=== PATIENT | female | born 1970 | race Caucasian/White ===

== ENCOUNTER 2019-07-11 12:55 | Inpatient (IN) | payer SELFPAY ==
[2019-07-11] VITALS (12 sets, daily range): BP systolic 121–138; BP diastolic 63–75; PULSE 98–113; RESP 16–25; TEMP 36.8–37.3; O2SAT 91–98; BMI 40.2
--- NOTE | 2019-07-11 13:05 | ED_ITS ---
Entered by Kimberlee Garcia, acting as scribe for Robert Cade DO HPI - SOB/Dyspnea General: Chief Complaint: Shortness of Breath/Dyspnea Stated Complaint: COPD,Back pain Time Seen by Provider: 07/11/19 13:05 Source: patient and family Mode of arrival: ambulatory Limitations: no limitations History of Present Illness: HPI Narrative: 49 yo female presents with shortness of breath. pt states she has had a cough. pt states this started a few days after being exposed to grandchildren. pt states she has had a fever and cough. pt stated this is worsened with deep breaths and nothing makes it better. pt denies any other symptoms at this time. pt has a hx of COPD. MD elicited complaint: shortness of breath and cough Pertinent past history: COPD Onset (ago): day(s) (2-3 days ago) Timing: constant and progressively worsening Severity: moderate Exacerbating factors: exertion and coughing Relieving factors: nothing Known history of: COPD Associated symptoms: Reports cough and fever(s); Deny abdominal pain, chest pain, dizziness, extremity pain, nausea, palpitations, polydipsia, polyuria, syncope or vomiting Related Data: Home oxygen amount: none Review of Systems Const: Reports: fever Eyes: Denies: change in vision or blurry vision Card: Denies: chest pain, palpitations, irregular heart rhythm, edema, syncope or leg pain with exertion GI: Denies: abdominal pain, nausea, vomiting, vomiting blood, coffee grounds in vomit, difficulty swallowing, heartburn/indigestion, diarrhea, constipation, cramping, blood in stool or black tarry stool : Denies: flank pain, painful urination, urinary frequency, urinary urgency, urinary incontinence or blood in urine Musc: Denies: neck pain, back pain, extremity pain, extremity swelling, joint pain or joint swelling Skin/Breast: Denies: rash, itching or redness Neuro: Denies: headache, numbness in extremities, weakness in extremities, changes in sensation, lack of coordination, difficulty walking, frequent falls, dizziness, vertigo or confusion Psych: Denies: anxiety, depression, loss of interest, visual hallucinations, auditory hallucinations, suicidal ideation or homicidal ideation Endo: Denies: excessive urination, excessive thirst, tired all the time or cold intolerance Eddie/Lymph: Denies: easy bruising, easy bleeding, petechiae, enlarged lymph nodes or tender lymph nodes PFSH ED PFSH: Statuses (acute, chronic, etc) shown below reflect problem list status as previously entered and may not be historically accurate Medical History Endometriosis (Acute) Thrombosis (Acute) Involving right ovary Surgical History History of cholecystectomy (Acute) History of oophorectomy, unilateral (Acute) Family History Mother Cancer breast Father Cancer pancreatic Social History Smoking and tobacco status: current every day smoker Alcohol intake: never Substance/Drug Use: never Lives independently: Yes Household members: significant other Female Reproductive History: Date of last menstrual period: 01/22/19 Physical Exam Const: COMMON NORMALS: oriented x3 and alert GENERAL APPEARANCE: cooperative, comfortable, well kempt and well developed NUTRITIONAL APPEARANCE: obese ORIENTATION/CONSCIOUSNESS: Yes awake, Yes oriented to person and Yes oriented to place HENMT: MOUTH: oral and palatal mucosa normal, lip normal and tongue normal THROAT: posterior oropharynx normal and tonsils normal Eye: COMMON NORMALS: PERRL, EOMs intact bilaterally, conjunctivae normal and no scleral icterus CONJUNCTIVA: Yes conjunctivae normal PUPIL: Yes PERRL Neck/C-Spine: COMMON NORMALS: full ROM, no lymphadenopathy, supple, no meningeal signs and thyroid normal THYROID: thyroid normal and asymmetrical Lymph: LYMPHATIC: no lymphadenopathy noted Resp: EFFORT & INSPECTION: Yes tachypneic, Yes pursed lip breathing and Yes actively coughing AUSCULTATION: wheezes throughout Cardio: COMMON NORMALS: regular rate and regular rhythm RATE: regular rate RHYTHM: regular rhythm HEART SOUNDS: no murmurs GI: COMMON NORMALS: normal to inspection, nondistended, normoactive bowel soun ds, soft to palpation and no hepatosplenomegaly PALPATION: Yes soft and Yes no hepatosplenomegaly : COMMON NORMALS: Yes no CVA tenderness BLADDER/KIDNEY EXAM: Yes no CVA tenderness Back/Pelvis: COMMON NORMALS: no CVA tenderness LUMBAR SPINE/LOWER BACK: Yes normal to inspection Extremity: COMMON NORMALS: no clubbing, cyanosis or edema, no calf tenderness and no pedal edema Neuro: COMMON NORMALS: oriented x3 SENSORIUM/ORIENTATION: Yes alert, Yes oriented to person and Yes oriented to place MENINGEAL SIGNS: Yes no meningeal signs Psych: APPEARANCE: Yes well kempt Skin: COMMON NORMALS: no rashes or lesions noted and skin turgor normal GENERAL SKIN EXAM: no rashes or lesions noted and turgor normal Course ED course: Initially had hoped to discharge the patient we given her nebulizer treatment she had pretty good read results and breathing improved and sats improved however this was short-lived she worsened again she is monitored for time only not believed with the influenza A and her COPD which is poorly controlled that she would do well as an outpatient she should be monitored for progression and aggressive pulmonary toilet. Vital Signs: Vital signs: Vital Signs Temperature 97.9 F 07/12/19 08:00 Pulse Rate 100 07/12/19 09:09 Respiratory Rate 18 07/12/19 09:05 Blood Pressure 131/85 07/12/19 08:00 Pulse Oximetry 96 07/12/19 09:05 MDM - SOB/Dyspnea Lab Data: Labs: Lab Results 07/11/19 07/11/19 07/11/19 Range/Units 13:26 13:41 13:45 WBC 7.0 (4.0-10.0) 10^3/ uL RBC 4.25 (4.1-5.3) 10^6/u L Hgb 12.0 (11.5-15.3) g/dL Hct 37.3 (37.0-47.0) % MCV 87.8 (81-99) fL MCH 28.2 (28.0-34.0) pg MCHC 32.2 (30.0-36.0) g/dL RDW 12.4 (12.1-15.1) % Plt Count 223 (130-400) 10^3/c mm MPV 9.4 (7.4-10.4) fL Neut % (Auto) 77.4 % Lymph % (Auto) 14.1 % [place] % (Auto) 7.8 % Eos % (Auto) 0.0 % Baso % (Auto) 0.3 % Neut # (Auto) 5.4 (1.8-7.7) 10^3/u L Lymph # (Auto) 1.0 (0.8-4.8) 10^3/u L [place] # (Auto) 0.5 (0.2-0.9) 10^3/u L Eos # (Auto) 0.0 (0.0-0.8) 10^3/u L Baso # (Auto) 0.0 (0.0-0.1) 10^3/u L Nucleated RBC % (a uto) 0 % Nucleated RBCs # 0.0 /100WBC Specimen Type Arterial Sample Site Radial, right ABG pH 7.52 H (7.35-7.45) ABG pCO2 34.1 L (35-45) mmHg ABG pO2 76.1 L (80.0-100.0) mmH g ABG HCO3 28.1 H (22-26) mmol/L ABG Base Excess 5.3 H (-2.0-2.0) mmol/ L [place] Test Pos Hematocrit 39.9 (37-47) % Hgb O2 Saturation 96.4 (95-100) % Carboxyhemoglobin 0.5 (0.4-20.1) %THgb Methemoglobin 0.4 (0.4-1.5) % Total Hemoglobin 13.0 (12-16) g/dL O2 Delivery Device Room air Director Family ID [id number] Sodium (136-145) mmol/L Potassium (3.5-5.1) mmol/L Chloride (98-107) mmol/L Carbon Dioxide (22-29) mmol/L Anion Gap (5-19) BUN (6-20) mg/dL Creatinine (0.5-0.9) mg/dL GFR Calculation (90-130) mL/min Glucose (65-115) mg/dL Calcium (8.5-10.5) mg/dL Total Bilirubin (0.15-1.2) mg/dL AST (0-32) U/L ALT (0-33) U/L Alkaline Phosphata se (35-105) IU/L Total Protein (6.6-8.7) g/dL Albumin (3.5-5.2) g/dL Globulin (1.3-4.6) g/dL Influenza Type A A g Positive H (Negative) POC Influenza B Ag Negative (Negative) 07/11/19 Range/Units 13:45 WBC (4.0-10.0) 10^3/ uL RBC (4.1-5.3) 10^6/u L Hgb (11.5-15.3) g/dL Hct (37.0-47.0) % MCV (81-99) fL MCH (28.0-34.0) pg MCHC (30.0-36.0) g/dL RDW (12.1-15.1) % Plt Count (130-400) 10^3/c mm MPV (7.4-10.4) fL Neut % (Auto) % Lymph % (Auto) % [place] % (Auto) % Eos % (Auto) % Baso % (Auto) % Neut # (Auto) (1.8-7.7) 10^3/u L Lymph # (Auto) (0.8-4.8) 10^3/u L [place] # (Auto) (0.2-0.9) 10^3/u L Eos # (Auto) (0.0-0.8) 10^3/u L Baso # (Auto) (0.0-0.1) 10^3/u L Nucleated RBC % (a uto) % Nucleated RBCs # /100WBC Specimen Type Sample Site ABG pH (7.35-7.45) ABG pCO2 (35-45) mmHg ABG pO2 (80.0-100.0) mmH g ABG HCO3 (22-26) mmol/L ABG Base Excess (-2.0-2.0) mmol/ L [place] Test Hematocrit (37-47) % Hgb O2 Saturation (95-100) % Carboxyhemoglobin (0.4-20.1) %THgb Methemoglobin (0.4-1.5) % Total Hemoglobin (12-16) g/dL O2 Delivery Device Director Family ID Sodium 134 L (136-145) mmol/L Potassium 3.4 L (3.5-5.1) mmol/L Chloride 97 L (98-107) mmol/L Carbon Dioxide 28 (22-29) mmol/L Anion Gap 12.4 (5-19) BUN 7 (6-20) mg/dL Creatinine 0.8 (0.5-0.9) mg/dL GFR Calculation 76.2 L (90-130) mL/min Glucose 139 H (65-115) mg/dL Calcium 8.7 (8.5-10.5) mg/dL Total Bilirubin 0.2 (0.15-1.2) mg/dL AST 21 (0-32) U/L ALT 14 (0-33) U/L Alkaline Phosphata se 86 (35-105) IU/L Total Protein 6.5 L (6.6-8.7) g/dL Albumin 3.7 (3.5-5.2) g/dL Globulin 2.8 (1.3-4.6) g/dL Influenza Type A A g (Negative) POC Influenza B Ag (Negative) Imaging Data^: CXR: Radiologist's impression: [address] [address] XRay Report Signed Patient: Gato Werner #: [id number] : 1970Acct#:[id number] Age/Sex: 49 / FADM Date: 07/11/19 Loc: [facility]/Bed: Attending Dr: Ordering Provider/Ordering MD: Robert Cade DO Date of Service: 07/11/19 Procedure(s): XR chest 1V portable [id number] Accession Number(s): [id number] Report Number: [id number] WS: [id number] CHEST XRAY TECHNIQUE: Portable chest. CLINICAL INFORMATION: cough COMPARISON: None. FINDINGS: Heart: Normal cardiac silhouette. Lungs: Lungs are clear. No consolidation or pleural effusion. No acute pulmonary infiltrates. Bones: Normal visualized bony structures. XR/XR chest 1V portable [id number] IMPRESSION: Normal chest Dictated By:Jose Eduardo Shukla MD Signed By:Jose Eduardo Shukla MDSigned Date/Time:07/11/19 1353 DD/ 1352 Discharge Plan Discharge Patient Disposition: Placed in Observation Admit Provider: Maged Bear Clinical Impression: Acute exacerbation of chronic obstructive airways disease, Influenza A Interventions: ED Discharge Assessment Last Done: 07/11/19 18:28 Discharge Date/Time: 07/11/19 18:31 Coding Level of Care Code ED Snack Bar Cashier for Chg Fwd Exam Problem Focused The documentation recorded by the Jose clements Bridget Annette, accurately reflects the service I personally performed and the decisions made by me, Robert Cade, DO
--- NOTE | 2019-07-11 13:13 | XR_ITS ---
WS: [id number] CHEST XRAY TECHNIQUE: Portable chest. CLINICAL INFORMATION: cough COMPARISON: None. FINDINGS: Heart: Normal cardiac silhouette. Lungs: Lungs are clear. No consolidation or pleural effusion. No acute pulmonary infiltrates. Bones: Normal visualized bony structures. XR/XR chest 1V portable [id number] IMPRESSION: Normal chest
[2019-07-11] MEDS: ipratropium-albuterol 3 mL Neb 6 ML INHALATION (13:36)
[2019-07-11] MEDS: sodium chloride 0.9% 500 ML 999 ML IV (13:46)
[2019-07-11 13:53] LABS: ABG PCO2 34.1 mmHg (35-45); ABG PH Result 7.52 (7.35-7.45); Arterial Blood Gas Hematocrit 39.9 % (37-47); Base Excess ABG 5.3 mmol/L (-2.0-2.0); Blood Gas Allen Test Pos; Blood Gas Sample Site Radial, right; Blood Gas Sample Type Arterial; Carboxyhemoglobin 0.5 %THgb (0.4-20.1); HCO3 ABG 28.1 mmol/L (22-26); HGB O2 Sat 96.4 % (95-100); Methemoglobin 0.4 % (0.4-1.5); Oxygen Device ROOM AIR; PO2 ABG 76.1 mmHg (80.0-100.0)
[2019-07-11 13:59] LABS: Basophils % 0.3 %; Hematocrit 37.3 % (37.0-47.0); Lymphocytes % 14.1 %; Mean Corpuscular HGB Conc 32.2 g/dL (30.0-36.0); Mean Corpuscular Hemoglobin 28.2 pg (28.0-34.0); Mean Corpuscular Volume 87.8 fL (81-99); Mean Platelet Volume 9.4 fL (7.4-10.4); Monocytes # 0.5 10^3/uL (0.2-0.9); Monocytes % 7.8 %; Neutrophils # 5.4 10^3/uL (1.8-7.7); Neutrophils % 77.4 %; Nucleated Red Blood Cells % 0 %; Platelet Count 223 10^3/cmm (130-400); Red Blood Count 4.25 10^6/uL (4.1-5.3); Red Cell Distribution Width 12.4 % (12.1-15.1)
[2019-07-11 14:19] LABS: Alanine Aminotransferase 14 U/L (0-33); Albumin Level 3.7 g/dL (3.5-5.2); Alkaline Phosphatase 86 IU/L (35-105); Anion Gap 12.4 (5-19); Aspartate Amino Transferase 21 U/L (0-32); Blood Urea Nitrogen 7 mg/dL (6-20); Calcium 8.7 mg/dL (8.5-10.5); Carbon Dioxide 28 mmol/L (22-29); Chloride 97 mmol/L (98-107); Globulin 2.8 g/dL (1.3-4.6); Glomerular Filtration Rate 76.2 mL/min (90-130); Glucose 139 mg/dL (65-115); Potassium 3.4 mmol/L (3.5-5.1); Sodium 134 mmol/L (136-145); Total Bilirubin 0.2 mg/dL (0.15-1.2); Total Protein 6.5 g/dL (6.6-8.7)
[2019-07-11 14:35] LABS: Influenza A by IFA Positive (Negative); Influenza B by IFA Negative (Negative)
[2019-07-11] MEDS: ipratropium-albuterol 3 mL Neb INHALATION ×2 (14:57→21:34)
[2019-07-11] MEDS: oseltamivir phosphate 75 mg Capsule PO ×2 (16:23→19:35)
--- NOTE | 2019-07-11 16:43 | PM.HP ---
Providers/Chief Complaint Chief Complaint: Shortness of breath and cough History of Present Illness Daniela Werner is a 49 year old female presents to emerge department with 3 to 4 days of gradually worsening shortness of breath and dry cough. She has been having febrile episodes for the first couple days. She reports that all of her grandkids are similarly ill. She has been wheezing and being generally weak. Patient denies any chest pain or abdominal pain. She tested positive for influenza A. She reports previous history of thrombosis involving her right ovary. In the emergency department patient was noted to be hypoxic in the 80s which improved with oxygen supplementation. She is not using oxygen at home. She is noted to be tachycardic and tachypneic with blood gas showing respiratory alkalosis. Review of Systems Const: Reports: fever and chills Eyes: Denies: change in vision ENMT: Denies: throat pain or nasal congestion Card: Reports: shortness of breath on exertion; Denies: chest pain, edema, lightheadedness or shortness of breath when lying down Resp: Reports: shortness of breath and non-productive cough; Denies: productive cough or coughing up blood GI: Denies: abdominal pain, nausea, vomiting, vomiting blood, coffee grounds in vomit, difficulty swallowing, heartburn/indigestion, diarrhea, constipation, blood in stool or black tarry stool : Denies: flank pain or painful urination Musc: Reports: back pain (Chronic due to bulging disc); Denies: neck pain or joint pain Skin/Breast: Denies: rash or itching Neuro: Reports: headache (From constant coughing); Denies: numbness in extremities, weakness in extremities, changes in sensation or lack of coordination Psych: Denies: anxiety, depression, suicidal ideation or homicidal ideation Endo: Denies: cold intolerance, excessive sweating or heat intolerance Eddie/Lymph: Denies: easy bruising or tender lymph nodes Medications/Allergies Home Medications Medication Instructions Recorded Confirmed Last Taken Type ibuprofen 600 mg PO Q4H PRN 07/11/19 07/11/19 07/10/19 History [id number] 2 cap PO TID 07/11/19 07/11/19 07/10/19 History [Sarah-[facility] Plus Day] Allergies Allergy/AdvReac Type Severity Reaction Status Date / Time No Known Allergies Allergy Verified 07/11/19 13:05 PFSH Acute PFSH: Statuses (acute, chronic, etc) shown below reflect problem list status as previously entered and may not be historically accurate Medical History (Updated 07/11/19 @ 16:56 by Maged Bear MD) Endometriosis (Acute) Thrombosis (Acute) Involving right ovary Surgical History (Updated 07/11/19 @ 16:56 by Maged Bear MD) History of cholecystectomy (Acute) History of oophorectomy, unilateral (Acute) Family History (Updated 07/11/19 @ 16:57 by Maged Bear MD) Mother Cancer breast Father Cancer pancreatic Social History (Updated 07/11/19 @ 17:09 by Maged Bear MD) Smoking and tobacco status: current every day smoker Alcohol intake: never Substance/Drug Use: never Lives independently: Yes Household members: significant other Female Reproductive History: Date of last menstrual period: 01/22/19 Vitals/I&O/Wt Last Vital Signs Temp 99.1 F 07/11/19 12:59 Pulse 104 H 07/11/19 16:24 Resp 25 H 07/11/19 16:24 BP 131/74 07/11/19 14:36 Pulse Ox 93 07/11/19 16:24 Weight last 48 hrs Weight 99.79 kg Physical Exam Const: COMMON NORMALS: oriented x3 GENERAL APPEARANCE: cooperative, well developed and in distress (Mild especially when talks.); not comfortable ORIENTATION/CONSCIOUSNESS: Yes awake, Yes oriented to person, Yes oriented to place and Yes oriented to time HENMT: COMMON NORMALS: normocephalic, head/scalp atraumatic, external ears normal, external nose normal, moist oral mucous membranes and oropharynx normal HEAD & SCALP: normocephalic and atraumatic FACE & SINUS: normal facial exam NOSE: external nose normal and nares normal EXTERNAL EAR: Yes external ears normal and Yes no preauricular adenopathy MOUTH: oral and palatal mucosa normal, lip normal and tongue normal THROAT: posterior oropharynx normal Eye: COMMON NORMALS: EOMs intact bilaterally and conjunctivae normal GENERAL EYE: normal appearance of both eyes CONJUNCTIVA: Yes conjunctivae normal SCLERA: sclerae normal Neck/C-Spine: COMMON NORMALS: no lymphadenopathy, supple, no meningeal signs and no JVD GENERAL: Yes normal visual inspection, Yes trachea midline and No JVD Lymph: LYMPHATIC: no lymphadenopathy noted Chest: COMMONS NORMALS: inspection of chest normal Resp: EFFORT & INSPECTION: Yes able to speak in complete sentences AUSCULTATION: diminished lung sounds and bronchovesicular breath sounds Cardio: COMMON NORMALS: no JVD, regular rate, regular rhythm, S1 normal heart sound, S2 normal heart sound, no gallops, no murmurs and no rub RATE: regular rate RHYTHM: regular rhythm HEART SOUNDS: S1 normal and S2 normal GI: COMMON NORMALS: normal to inspection, nondistended, normoactive bowel sounds, soft to palpation and non-tender PALPATION: Yes soft : COMMON NORMALS: Yes no CVA tenderness BLADDER/KIDNEY EXAM: Yes no CVA tenderness Back/Pelvis: COMMON NORMALS: no CVA tenderness and thoracic and lumbar spine normal to inspection Extremity: COMMON NORMALS: normal to inspection and no pedal edema Neuro: COMMON NORMALS: oriented x3, moves all extremities, no focal motor deficits and no sensory deficits noted SENSORIUM/ORIENTATION: Yes oriented to person, Yes oriented to place and Yes oriented to time MENINGEAL SIGNS: Yes no meningeal signs Psych: COMMON NORMALS: mental status grossly normal, thought process normal, cooperative and speech normal SPEECH: Yes normal speech THOUGHT PROCESS: normal thought process Skin: COMMON NORMALS: no rashes or lesions noted GENERAL SKIN EXAM: no rashes or lesions noted Data : 07/11/19 13:45 07/11/19 13:45 A&P Assessment and plan (1) Acute exacerbation of chronic obstructive airways disease: Status: Acute Code(s): J44.1 - Chronic obstructive pulmonary disease with (acute) exacerbation (2) Influenza A with respiratory manifestations: Status: Acute Code(s): J10.1 - Influenza due to other identified influenza virus with other respiratory manifestations (3) Acute respiratory failure with hypoxia: Status: Acute Code(s): J96.01 - Acute respiratory failure with hypoxia Additional A&P Information Will obtain CTA of chest to rule out PE. Patient will be started on Tamiflu as well as doxycycline for secondary pneumonia prevention. Continue steroids and bronchodilators. Gentle IV hydration. BiPAP if needed. Discussed extensively of more than 3 minutes regarding importance of smoking cessation. Patient voiced understanding and reports that she will quit. Attestations Medical Necessity Statement*: Patient with acute respiratory failure with hypoxia requires close inpatient monitoring and treatment. I expect patient will require more than 2 midnights. 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
--- NOTE | 2019-07-11 16:48 | CTR_ITS ---
PROCEDURE INFORMATION: Exam: CT Angiography Chest With Contrast Exam date and time: 07/11/2019 4:59 PM Age: 49 years old Clinical indication: Cough and shortness of breath; Chest pain; Additional info: Hypoxia TECHNIQUE: Imaging protocol: Computed tomographic angiography of the chest with intravenous contrast. 3D rendering: MIP and/or 3D reconstructed images were created by the technologist. Total DLP: 537.62 mGy-cm Radiation optimization: All CT scans at this facility use at least one of these dose optimization techniques: automated exposure control; mA and/or kV adjustment per patient size (includes targeted exams where dose is matched to clinical indication); or iterative reconstruction. Contrast material: OMNI 350; Contrast volume: 95 ml; Contrast route: IV; COMPARISON: CR XR chest 1V portable [id number] 07/11/2019 2:01 PM FINDINGS: Limitations: Suboptimal/less than robust opacification the pulmonary arterial tree. Increased noise/quantum mottle, which may be secondary to causes such as low to output for a given body size versus increased amount overlying soft tissues. Pulmonary arteries: Normal. No pulmonary emboli. Aorta: There is no evidence of aortic aneurysm or dissection. Superior vena cava: Allowing for the presence of extensive streak artifact partly caused by dense contrast in superior vena cava, no definite emboli are identified. Lungs: There is some minimal subsegmental atelectasis in the left lower lobe. There is a small calcified granuloma in the right lower lobe. Lungs are otherwise clear. Pleural space: Unremarkable. No pneumothorax. No pleural effusion. Heart: Unremarkable. No cardiomegaly. No pericardial effusion. Mediastinum: There is a small hiatal hernia. Lymph nodes: There is no adenopathy. Bones/joints: Unremarkable. No acute fracture. Soft tissues: There is 1.3 cm sized round nodule in the upper outer quadrant of the left breast, probably benign fibroadenoma. Correlation with mammogram examination is suggested. CT/CT angio chest PE protcl [id number] IMPRESSION: 1. Limited exam due to excessive streak artifact 2. No definite pulmonary emboli are identified. 3. Left breast nodule. Further evaluation suggested. Radiation Dose CTDIVOL = (mGy): DLP = 537.62 (mGy-cm)
[2019-07-11] MEDS: iohexol 350 mg/mL 100 mL Btl 95 ML IV (17:34)
[2019-07-11] MEDS: sodium chlor 0.9% + KCl 20 mEq 20 MEQ/1,000 ML BAG 50 MEQ IV (19:33)
[2019-07-11] MEDS: enoxaparin 40 mg/0.4 mL Syringe SUBCUT (19:35)
[2019-07-11] MEDS: HYDROcodone-acetaminophen 5-325 mg Tablet 1 TAB PO ×2 (19:37→22:37)
[2019-07-11] MEDS: sennosides 8.6 mg Tablet 17.2 MG PO (20:48)
[2019-07-12 04:00] VITALS: BP 124/76; PULSE 87; RESP 22; TEMP 36.7; O2SAT 94
[2019-07-12 04:18] LABS: Basophils % 0.1 %; Hematocrit 38.8 % (37.0-47.0); Hemoglobin 12.7 g/dL (11.5-15.3); Lymphocytes # 0.5 10^3/uL (0.8-4.8); Lymphocytes % 5.3 %; Mean Corpuscular HGB Conc 32.7 g/dL (30.0-36.0); Mean Corpuscular Hemoglobin 29.7 pg (28.0-34.0); Mean Corpuscular Volume 90.9 fL (81-99); Monocytes # 0.5 10^3/uL (0.2-0.9); Neutrophils # 8.8 10^3/uL (1.8-7.7); Neutrophils % 89.1 %; Nucleated Red Blood Cells % 0 %; Platelet Count 269 10^3/cmm (130-400); Red Blood Count 4.27 10^6/uL (4.1-5.3); Red Cell Distribution Width 12.6 % (12.1-15.1); White Blood Count 9.8 10^3/uL (4.0-10.0)
[2019-07-12 04:44] LABS: Alanine Aminotransferase 15 U/L (0-33); Albumin Level 3.4 g/dL (3.5-5.2); Alkaline Phosphatase 75 IU/L (35-105); Anion Gap 15.4 (5-19); Aspartate Amino Transferase 23 U/L (0-32); Blood Urea Nitrogen 6 mg/dL (6-20); Calcium 8.5 mg/dL (8.5-10.5); Carbon Dioxide 24 mmol/L (22-29); Chloride 102 mmol/L (98-107); Globulin 2.8 g/dL (1.3-4.6); Glomerular Filtration Rate 88.9 mL/min (90-130); Glucose 225 mg/dL (65-115); Potassium 3.4 mmol/L (3.5-5.1); Sodium 138 mmol/L (136-145); Total Bilirubin 0.2 mg/dL (0.15-1.2); Total Protein 6.2 g/dL (6.6-8.7)
[2019-07-12 06:30] LABS: Add Urine Microscopic? NO
[2019-07-12 06:54] LABS: Bilirubin Urine Neg (NEGATIVE); Blood Urine Neg (Negative); Glucose Urine UA 4+ (Normal); Ketones Urine Negative (Negative); Leukocyte Esterase Urine Negative (Negative); Nitrate Urine Negative (Negative); Protein Urine Neg (Negative); Specific Gravity, Urine 1.005 (1.005-1.030); Urine Appearance Clear (CLEAR); Urine Color Yellow (Yellow); Urobilinogen Urine Norm (Negative); pH Urine 6.5 (5-7)
[2019-07-12 08:00] VITALS: BP 131/85; PULSE 93; RESP 18; TEMP 36.6; O2SAT 95
[2019-07-12] MEDS: predniSONE 20 mg Tablet 40 MG PO (08:28)
[2019-07-12] MEDS: pantoprazole DR 40 mg Tablet PO (08:28)
[2019-07-12] MEDS: ipratropium-albuterol 3 mL Neb INHALATION (09:03)
[2019-07-12 09:05] VITALS: PULSE 96; RESP 18; O2SAT 96
[2019-07-12 09:09] VITALS: PULSE 100
[2019-07-12 11:17] VITALS: BP 118/76; PULSE 110; RESP 18; TEMP 36.7; O2SAT 95
[2019-07-12] MEDS: oseltamivir phosphate 75 mg Capsule PO (11:58)
--- NOTE | 2019-07-12 12:03 | PC.CHAP ---
Pastoral Care Encounter/Spiritual Assessment Type of Contact [] Declined track watchman visit [] Patient/Family/Request visit [] Outpatient visit [] Follow-up visit [] Physician referral [] Code/Alert [x] Routine visit [] Staff referral [] Actively dying [] Patient sleeping [] Family support [] [] Out of room [] Palliative care [] [] Receiving care in room [] Pre-surgical visit [] Trauma [] Long length of stay [] ICU visit [] Other: Relational/Emotional Strength [x] Patient feels connected with others/family/visitors/staff [] Distress [] Loneliness/isolation [] Abandonment Spirituality of Patient [x] Person of Geni [x] Attends Scientology of their Geni [x] Believes in Prayer [] Reads Bible or Advent materials [] There are Spiritual issues to be addressed [employer] Interventions [x] Prayer [x] Active listening [x] Non-anxious presence [x] Spiritual/emotional support [] Crisis/trauma care [x] Spiritual counseling [] Bereavement support [] Provided bereavement packet [] Provided Bible/devotional materials [] Provided toy/stuffed animal, coloring book to patient or family member [] Provided Communion [] Anointing/[place] [] Salvation [] Completed spiritual assessment [] Other: Impact on Illness or Injury [] Angry [] Fearful [] Anxious [] Often cries [] Exhaustion [] Unable to work [] Unable to attend hindu [] Unable to walk/stand [] Unable to read [] Unable to drive [] Unable to eat/drink [] Unable to sleep [] Unable to be with family [] Patient intubated [] Other: n/a Summary Patient is recovering from flu, expressed she was feeling much better and looking forward to being released. Time spent with patient 5 minutes
--- NOTE | 2019-07-12 12:12 | P.DS_ITS ---
Discharge Providers Date of Admission: 07/11/19 16:36 Date of Discharge: Date of Discharge: July 12, 2019 Attending Provider at Admission: Maged Bear MD Attending Provider at Discharge: Lenny Ewing MD Diagnoses at Discharge Discharge Diagnosis (1) Acute exacerbation of chronic obstructive airways disease: Status: Acute (2) Influenza A with respiratory manifestations: Status: Acute (3) Acute respiratory failure with hypoxia: Status: Acute Reason for Visit Reason for Visit: Reason For Visit: COPD EXACERBATION, INFLUENZA A Hospital Course Discharge Summary: Daniela Werner is a 49 year old female presents to [facility] department with 3 to 4 days of gradually worsening shortness of breath and dry cough. She has been having febrile episodes for the first couple days. She reports that all of her grandkids are similarly ill. She has been wheezing and being generally weak. Patient denies any chest pain or abdominal pain. She tested positive for influenza A. In ER she was found to be hypoxic for which she required O2 supplementation. She was treated with oral steroids, nebulizations and tamiflu. She responded well to treatment was saturating over 92% on room air next morning. She denies any nausea or vomiting so is being discharged in stable condition on baseline O2 requirements with oral Tamiflu course for 7 days. Physical Exam Narrative: EXAM NARRATIVE: General: No acute distress, AO x3 HEENT: PERRLA, pupils bilaterally equal and reactive Chest: Normal vesicular breath sounds, occasional ronchi, Post > Ant, equal good air entry bilaterally CVS: S1-S2 regular, no murmurs, no tachycardia, no gallops, no rubs Abdomen: Soft, nontender, no organomegaly, bowel sounds present Neuro: No focal deficits, no facial deformity, AO x3, power 5/5 in all limbs Discharge Data Data Completed and Pending: Completed Studies During Hospitalization Category Date Time Status CT angio chest PE protcl [id number] Urge nt Cat Scan 07/11/19 16:48 Completed XR chest 1V neil ble [id number] Urgent Exams 07/11/19 13:13 Completed Pending at discharge Category Date Time Status Sputum Culture an d Gram Stain Stat Lab 07/11/19 13:13 Uncollected Labs from last 24 hours 07/12/19 07/12/19 07/12/19 05:10 03:45 03:45 WBC 9.8 RBC 4.27 Hgb 12.7 Hct 38.8 MCV 90.9 MCH 29.7 MCHC 32.7 RDW 12.6 Plt Count 269 MPV 10.0 Neut % (Auto) 89.1 Lymph % (Auto) 5.3 [place] % (Auto) 5.0 Eos % (Auto) 0.0 Baso % (Auto) 0.1 Neut # (Auto) 8.8 H Lymph # (Auto) 0.5 L [place] # (Auto) 0.5 Eos # (Auto) 0.0 Baso # (Auto) 0.0 Nucleated RBC % (a uto) 0 Nucleated RBCs # 0.0 Specimen Type Sample Site ABG pH ABG pCO2 ABG pO2 ABG HCO3 ABG Base Excess [place] Test Hematocrit Hgb O2 Saturation Carboxyhemoglobin Methemoglobin Total Hemoglobin O2 Delivery Device Automation Controls Specialist ID Sodium 138 Potassium 3.4 L Chloride 102 Carbon Dioxide 24 Anion Gap 15.4 BUN 6 Creatinine 0.7 GFR Calculation 88.9 L Glucose 225 H Calcium 8.5 Total Bilirubin 0.2 AST 23 ALT 15 Alkaline Phosphata se 75 Total Protein 6.2 L Albumin 3.4 L Globulin 2.8 Urine Color Yellow Urine Appearance Clear Urine pH 6.5 Ur Specific Gravit y 1.005 Urine Protein Neg Urine Glucose (UA) 4+ H Urine Ketones Negative Urine Occult Blood Neg Urine Nitrate Negative Urine Bilirubin Neg Urine Urobilinogen Norm Ur Leukocyte [place] Negative Influenza Type A A g POC Influenza B Ag 07/11/19 07/11/19 07/11/19 13:45 13:45 13:41 WBC 7.0 RBC 4.25 Hgb 12.0 Hct 37.3 MCV 87.8 MCH 28.2 MCHC 32.2 RDW 12.4 Plt Count 223 MPV 9.4 Neut % (Auto) 77.4 Lymph % (Auto) 14.1 [place] % (Auto) 7.8 Eos % (Auto) 0.0 Baso % (Auto) 0.3 Neut # (Auto) 5.4 Lymph # (Auto) 1.0 [place] # (Auto) 0.5 Eos # (Auto) 0.0 Baso # (Auto) 0.0 Nucleated RBC % (a uto) 0 Nucleated RBCs # 0.0 Specimen Type Arterial Sample Site Radial, right ABG pH 7.52 H ABG pCO2 34.1 L ABG pO2 76.1 L ABG HCO3 28.1 H ABG Base Excess 5.3 H [place] Test Pos Hematocrit 39.9 Hgb O2 Saturation 96.4 Carboxyhemoglobin 0.5 Methemoglobin 0.4 Total Hemoglobin 13.0 O2 Delivery Device Room air Automation Controls Specialist ID jmn Sodium 134 L Potassium 3.4 L Chloride 97 L Carbon Dioxide 28 Anion Gap 12.4 BUN 7 Creatinine 0.8 GFR Calculation 76.2 L Glucose 139 H Calcium 8.7 Total Bilirubin 0.2 AST 21 ALT 14 Alkaline Phosphata se 86 Total Protein 6.5 L Albumin 3.7 Globulin 2.8 Urine Color Urine Appearance Urine pH Ur Specific Gravit y Urine Protein Urine Glucose (UA) Urine Ketones Urine Occult Blood Urine Nitrate Urine Bilirubin Urine Urobilinogen Ur Leukocyte Tat[place] a[place] Influenza Type A A g POC Influenza B Ag 07/11/19 13:26 WBC RBC Hgb Hct MCV MCH MCHC RDW Plt Count MPV Neut % (Auto) Lymph % (Auto) [place] % (Auto) Eos % (Auto) Baso % (Auto) Neut # (Auto) Lymph # (Auto) [place] # (Auto) Eos # (Auto) Baso # (Auto) Nucleated RBC % (a uto) Nucleated RBCs # Specimen Type Sample Site ABG pH ABG pCO2 ABG pO2 ABG HCO3 ABG Base Excess [place] Test Hematocrit Hgb O2 Saturation Carboxyhemoglobin Methemoglobin Total Hemoglobin O2 Delivery Device Automation Controls Specialist ID Sodium Potassium Chloride Carbon Dioxide Anion Gap BUN Creatinine GFR Calculation Glucose Calcium Total Bilirubin AST ALT Alkaline Phosphata se Total Protein Albumin Globulin Urine Color Urine Appearance Urine pH Ur Specific Gravit y Urine Protein Urine Glucose (UA) Urine Ketones Urine Occult Blood Urine Nitrate Urine Bilirubin Urine Urobilinogen Ur Leukocyte [place] Influenza Type A A g Positive H POC Influenza B Ag Negative Vitals: Last Vital Signs Temp 98.0 F 07/12/19 11:17 Pulse 110 H 07/12/19 11:17 Resp 18 07/12/19 11:17 BP 118/76 07/12/19 11:17 Pulse Ox 95 07/12/19 11:17 Discharge Plan Discharge Patient Disposition: Home, Self-Care Condition: Stable Prescriptions: New prednisone 20 mg Tablet 40 mg PO DAILY Qty: 10 RF: 0 oseltamivir 75 mg Capsule 75 mg PO BID Qty: 20 RF: 0 Pulmicort Flexhaler 180 mcg/actuation aerosol powdr breath activated 1 inh INHALATION BID Qty: 1 RF: 0 ipratropium-albuterol 0.5 mg-3 mg(2.5 mg base)/3 mL solution for nebulization 3 ml INHALATION BID Qty: 90 RF: 0 Discharge Orders: Discharge Order (Routine); Ordered 07/12/19 Ordered By: Lenny Ewing Other Ambulatory Orders: DME: Nebulizer (Order) Location: None Selected Ordered By: Lenny Ewing Referrals: [facility] [place] [Outside] Moise Triana MD [Physician] - 07/17/19 2:30 pm Discharge Diet: Regular Discharge Activity: Resume usual activity Patient Instructions: Prednisone (By mouth), Budesonide (By breathing), Influenza (GEN) Activity Restrictions/Additional Instructions: Medicines as above. Case management will call with an appointment with Dr. Triana Discharge Date/Time: 07/12/19 13:30 Discharge Attestations Time Spent in Discharge Care*: greater than 30 min Specific Discharge Activities: Specific discharge activities: educating patient and discussing with social work case manager/social workers/dc planners Status at Discharge: Cognitive status at discharge: cognitively intact , Behavioral status at discharge: cooperative , Functional status at discharge: independent ambulation Overall status at discharge: patient is back to baseline Quality Metrics Clinical Quality Measures During this hospital stay, did patient experience: None Coding Level of Care Code Acute [employer] Diagnoses Acute exacerbation of chronic obstructive airways disease J44.1 Influenza A with respiratory manifestations J10.1 Acute respiratory failure with hypoxia J96.01
[2019-07-12 12:58] VITALS: BP 118/76; PULSE 110; RESP 18; TEMP 36.7; O2SAT 95
== END 2019-07-12 13:30 | disposition home or self-care (01) | DRG 189 ==
LOC: ER 18:30 → MEDSURG 07-12 07:53
PROVIDERS: Admitting Provider Internal Medicine; Emergency Provider Family Medicine; Visit Provider Student in an Organized Health Care Education/Training Program
DX: J96.01 Acute respiratory failure with hypoxia (principal); J44.1 Chronic obstructive pulmonary disease with (acute) exacerbation; J10.1 Influenza due to other identified influenza virus with other respiratory manifestations; Z20.828 Contact with and (suspected) exposure to other viral communicable diseases; F17.210 Nicotine dependence, cigarettes, uncomplicated; G89.29 Other chronic pain; M54.9 Dorsalgia, unspecified
CPT/HCPCS: 12345; 36415; 36600; 71045; 71275; 80053; 81003; 82805; 85025; 87804; 94640; 96372; 96375; 99283; J1650; J2930; J7040; J7512; Q9967